=== PATIENT | male | born 1985 | race Caucasian/White ===

== ENCOUNTER 2021-08-16 16:40 | Emergency (ER) | payer OTHER ==
[~2021-08-16] VITALS: Ht 185.4 cm; Wt 158.8 kg
[2021-08-16] MEDS ORDERED: SODIUM CHLORIDE 0.9% 1,000 ML IVB ONE (17:00)
[2021-08-16 17:54] LABS: Basophils # (auto) 0.2 10 ^3/uL (0-0.2); Basophils % (auto) 1.4 % (0.0-2.0); Eosinophils # (auto) 0.5 10 ^3/uL (0-0.8); Eosinophils % (auto) 4.5 % (0.0-7.0); Hematocrit 42.8 % (41.0-53.0); Hemoglobin 14.3 g/dL (13.5-17.5); Lymphocytes # (auto) 2.9 10 ^3/uL (0.4-5.4); Mean Corpuscular Hgb Conc. 33.4 g/dL (32.0-36.0); Mean Corpuscular Volume 80.8 fL (80.0-100.0); Monocytes # (auto) 0.6 10 ^3/uL (0-1.3); Neutrophils # (auto) 7.8 10 ^3/uL (1.6-8.6); Neutrophils % (auto) 65.1 % (37.0-80.0); Nucleated Red Blood Cells % 0.1 %; Red Blood Cells 5.29 10^6/uL (4.5-5.90); Red Cell Distribution Width 13.2 % (11.8-14.3); White Blood Cell 11.9 10^3/uL (4.4-10.8)
[2021-08-16 18:05] LABS: Alanine Aminotransferase 151 U/L (16-61); Albumin 3.6 g/dL (3.4-5.0); Anion Gap 13 (5-15); Aspartate Aminotransferase 95 U/L (15-37); BUN/Creatinine Ratio 14.7; Blood Urea Nitrogen 15 mg/dL (7-18); Calcium 8.9 mg/dL (8.5-10.1); Carbon Dioxide 19 mmol/L (21-32); Chloride 101 mmol/L (98-107); GFR African American 107 mL/min; GFR Non-African American 88 mL/min; Glucose 380 mg/dL (74-106); Potassium 3.8 mmol/L (3.5-5.1); Sodium 133 mmol/L (136-145)
[2021-08-16 18:08] LABS: Alkaline Phosphatase 181 U/L (45-117); Bilirubin, Total 0.7 mg/dL (0.2-1.0); Total Protein 7.8 g/dL (6.4-8.2)
[2021-08-16 18:13] LABS: Magnesium 2.1 mg/dL (1.6-2.6)
[2021-08-16] MEDS ORDERED: InsuLIN REG 1unit/0.01ml Soln (100units/ml) SC ONE (18:30)
[2021-08-16 19:42] LABS: Urine Bacteria NONE SEEN /hpf (None Seen); Urine Blood Negative /uL (Negative); Urine Mucus FEW (None Seen); Urine Specific Gravity 1.031 (1.001-1.035); Urine WBC <1 /hpf (0 - 3)
[2021-08-16 21:12] LABS: Albumin 3.4 g/dL (3.4-5.0); Calcium 8.2 mg/dL (8.5-10.1); Potassium 3.7 mmol/L (3.5-5.1)
[2021-08-16 21:16] LABS: BUN/Creatinine Ratio 15.1; Bilirubin, Total 0.5 mg/dL (0.2-1.0)
[2021-08-16] MEDS ORDERED: SODIUM CHLORIDE 0.9% 1,000 ML IV ONE ×2 (21:45→22:45)
[2021-08-16 23:35] VITALS: BP 123/79
== END 2021-08-17 00:30 | disposition home or self-care (01) ==
LOC: ER 16:45
DX: E11.9 Type 2 diabetes mellitus without complications (principal); I10 Essential (primary) hypertension; E66.09 Other obesity due to excess calories; Z68.35 Body mass index [BMI] 35.0-35.9, adult
CPT/HCPCS: 36415; 71046; 80053; 81001; 82962; 83690; 83735; 84443; 85025; 93005; 96360; 96361; 96372; 99285; J1815; J7030